=== PATIENT | female | born 1985 | race Caucasian/White ===

== ENCOUNTER → 2019-02-08 09:52 | Outpatient (CLI) | payer OTHER, SELFPAY ==
--- NOTE | 2019-02-08 | DI.US.S_ITS ---
PROCEDURE: US OB >= 14 WEEKS FETUS INDICATIONS: ANATOMY SCAN OUTSIDE/PRIOR DATING DATA: Last menstrual period (LMP): 09/16/2018. LMP-based estimated date of delivery (ZAY): 06/23/2019. First dating scan (date and location): 11/18/2018. [facility]. Estimated date of delivery (ZAY) from first dating scan: 06/24/2019. TECHNIQUE: Real-time scanning was performed of the fetus, with image documentation and biometric measurements. COMPARISON: None. FINDINGS: General: A single living intrauterine gestation is present. Presentation: Vertex. Placenta: Placental position is anterior, without previa. Amniotic fluid index: 16.8 cm, normal range is 5-24 cm. heart rate: 144 beats per minute. Maternal cervical canal: 4.5 cm long. Normal lower limit is 2.5 cm. biometrics: Biparietal diameter: 4.8 cm. 20 weeks 4 days. Head circumference: 18.3 cm. 20 weeks 5 days. Abdominal circumference: 15.9 cm. 21 weeks 0 days. Femur length: 3.3 cm. 20 weeks 1 day. Estimated gestational age from initial scan: 20 weeks 4 days. Composite gestational age from present scan: 20 weeks 4 days Estimated weight and percentile: 367 g. 49 percentile. Measurement variability for biometric dating: +/- 7 days from 14 weeks to 15 weeks 6 days gestation, +/- 10 days from 16 weeks to 21 weeks 6 days gestation, +/- 2 weeks from 22 weeks to 27 weeks 6 days gestation, +/- 3 weeks for 28 weeks gestation or later. weight reference: 4500 g or EFW >90/95% is considered macrosomia or large for gestational age. EFW <10% is small for gestational age. EFW 5% or less is considered intra-uterine growth restriction. Anatomic survey: Neuro: Ventricles are non-dilated at less than 10 mm. Cisterna magna is normal at 3-11 mm. Cerebellum is normal in size and morphology. Nuchal skin fold: Normal at less than 6 mm between 14-21 weeks gestational age. Face: Nose and lips, facial profile are normal. Spine: No evidence for spina bifida. Heart: 4-chambered heart is present, with normal ventricular outflow tracts. Diaphragm: Diaphragm is intact. Stomach: Left-sided stomach is present. Kidneys: No hydronephrosis. Normal is less than 5 mm in 2nd trimester, less than 7 mm in 3rd trimester. Cord: 3-vessel cord has orthotopic insertion. Bladder: Normal in size. Extremities: All 4 extremities identified. Maternal ovaries are not seen. IMPRESSION: 1. Rausch living intrauterine at 20 weeks 4/7 days based on today's ultrasound. This is concordant with the external assessment. There is expected interval growth. 2. Normal placenta and amniotic fluid. 3. Normal and complete anatomic survey. Dictated by: Josue Olson M.D. on 02/08/2019 at 16:53 Approved by: Josue Olson M.D. on 02/08/2019 at 16:58
== END ==
PROVIDERS: Visit Provider Nurse Practitioner Obstetrics & Gynecology
DX: Z36.89 Encounter for other specified antenatal screening (principal); Z3A.20 20 weeks gestation of pregnancy
CPT/HCPCS: 76811

== ENCOUNTER → 2019-03-16 09:39 | Outpatient (CLI) | payer OTHER, SELFPAY ==
[2019-03-16 11:48] LABS: Hematocrit 37.2 % (36-46); Hemoglobin 12.7 g/dL (12.0-16.0); Mean Corpuscular HGB Conc 34.2 % (30-36); Mean Corpuscular Hemoglobin 29.8 PG (26-34); Mean Corpuscular Volume 87.1 fL (80-100); Platelet Count 252 X10^3/uL (150-400); Red Blood Cell Count 4.27 X10^6/uL (4.0-5.2); Red Cell Distribution Width 13.7 % (11.6-14.8); White Blood Cell Count 10.4 X10^3/uL (4.5-11.0)
[2019-03-16 12:14] LABS: Glucose Tol Interpretation INTERPRETATION
[2019-03-16 12:29] LABS: Glucose 1 Hour 191 mg/dL (70-170)
[2019-03-16 12:30] LABS: Glucose Fasting 97 mg/dL (70-100)
[2019-03-16 13:13] LABS: Glucose 2 Hour 119 mg/dL (70-140)
== END ==
PROVIDERS: Visit Provider Nurse Practitioner Obstetrics & Gynecology
DX: Z34.82 Encounter for supervision of other normal pregnancy, second trimester (principal); Z13.1 Encounter for screening for diabetes mellitus
CPT/HCPCS: 36415; 82951; 82952; 85027

== ENCOUNTER → 2019-05-26 11:33 | Outpatient (CLI) | payer OTHER, SELFPAY ==
--- NOTE | 2019-05-26 | DI.US.S_ITS ---
PROCEDURE: US OB LIMITED INDICATIONS: EFW; BPP; GESTATIONAL DIABETES OUTSIDE/PRIOR DATING DATA: Last menstrual period (LMP): 09/16/2018. LMP-based estimated date of delivery (ZAY): 06/23/2019. First dating scan (date and location): 11/18/2018. [facility]. Estimated date of delivery (ZAY) from first dating scan: 06/24/2019. TECHNIQUE: Real-time scanning was performed of the fetus, with image documentation and biometric measurements. Biophysical profile was also performed. Endovaginal scanning: Not done COMPARISON: [facility], OB >= 14 WEEKS FETUS, 02/08/2019, 10:04. FINDINGS: General: A single live intrauterine gestation is present. Presentation: Vertex. Placenta: Placental position is right fundal, without previa. Amniotic fluid index: 10.1 cm, normal range is 5-24 cm. heart rate: 152 beats per minute. Maternal cervical canal: Not seen biometrics: Biparietal diameter: 8.9 cm equals 35 weeks 6 days Head circumference: 33.8 cm equals 38 weeks 6 days Abdominal circumference: 33.6 cm equals 37 weeks 4 days Femur length: 7.3 cm equals 37 weeks 1 day Estimated gestational age from initial scan: 35 weeks 6 days Composite gestational age from present scan: 37 weeks 3 days Estimated weight and percentile: 3195 g, 88% Measurement variability for biometric dating: +/- 7 days from 14 weeks to 15 weeks 6 days gestation, +/- 10 days from 16 weeks to 21 weeks 6 days gestation, +/- 2 weeks from 22 weeks to 27 weeks 6 days gestation, +/- 3 weeks for 28 weeks gestation or later. weight reference: 4500 g or EFW >90/95% is considered macrosomia or large for gestational age. EFW <10% is small for gestational age. EFW 5% or less is considered intra-uterine growth restriction. Biophysical profile: Tone: 2 points Movement: 2 points Respiration: 2 points Largest pocket: 2 points Other: Not applicable. IMPRESSION: Normal biophysical profile, 8/8 points. Normal interval growth when compared to the prior ultrasound examination. The estimated weight is 3185 g, 88th percentile. Dictated by: Hussein Blanchard M.D. on 05/26/2019 at 11:30 Approved by: Hussein Blanchard M.D. on 05/26/2019 at 11:33
== END ==
PROVIDERS: Referring Provider Nurse Practitioner Obstetrics & Gynecology; Visit Provider Nurse Practitioner Obstetrics & Gynecology
DX: Z36.89 Encounter for other specified antenatal screening (principal); Z36.85 Encounter for antenatal screening for Streptococcus B; O24.419 Gestational diabetes mellitus in pregnancy, unspecified control; Z3A.37 37 weeks gestation of pregnancy
CPT/HCPCS: 76815; 76819; 87081

== ENCOUNTER → 2019-06-09 12:14 | Outpatient (CLI) | payer OTHER, SELFPAY ==
--- NOTE | 2019-06-09 | DI.US.S_ITS ---
PROCEDURE: US OB FOLLOW UP INDICATIONS: GROWTH AND BPP OUTSIDE/PRIOR DATING DATA: Last menstrual period (LMP): 09/16/18. LMP-based estimated date of delivery (ZAY): 06/23/19. First dating scan (date and location): 11/18/18. Estimated date of delivery (ZAY) from first dating scan: 06/24/19. TECHNIQUE: Real-time scanning was performed of the fetus, with image documentation and biometric measurements. Endovaginal scanning: Not performed COMPARISON: None. FINDINGS: General: A single living intrauterine gestation is present. Presentation: Cephalic. Placenta: Placental position is anterior, without previa. Amniotic fluid index: 7.9 cm, normal range is 5-24 cm. heart rate: 171 beats per minute. Maternal cervical canal: Maternal cervical length not measured secondary to limited visualization given cephalic presentation and advanced gestational age. biometrics: Biparietal diameter: 9.3 cm, correlating with 37 weeks and 4 days (67th percentile) Head circumference: 32.7 cm, correlating with 36 weeks and 6 days (10th percentile) Abdominal circumference: 32.9 cm, correlating with 37 weeks and 6 days (66 percentile) Femur length: 7.32 cm, correlating with 38 weeks and 0 days (56 percentile) Estimated gestational age from initial scan: not applicable. Composite gestational age from present scan: 37 weeks and 4 days Estimated weight and percentile: 3290 g which correlates with the 58th percentile based off gestational age. Measurement variability for biometric dating: +/- 7 days from 14 weeks to 15 weeks 6 days gestation, +/- 10 days from 16 weeks to 21 weeks 6 days gestation, +/- 2 weeks from 22 weeks to 27 weeks 6 days gestation, +/- 3 weeks for 28 weeks gestation or later. weight reference: 4500 g or EFW >90/95% is considered macrosomia or large for gestational age. EFW <10% is small for gestational age. EFW 5% or less is considered intra-uterine growth restriction. Other: Biophysical profile score measured 8 out of 8. IMPRESSION: 1. Single living intrauterine gestation with an estimated sonographic gestational age of approximately 37 weeks and 4 days. Expected interval growth has occurred. 2. Estimated weight measuring approximately 3290 g which correlates with the 58th percentile based off gestational age. 3. Four-quadrant KRISTIE measured 7.9 cm with the largest vertical fluid pocket measuring approximately 4.9 cm. 4. Biophysical profile score of 8 out of 8. Dictated by: Marquise Kern M.D. on 06/09/2019 at 16:07 Approved by: Marquise Kern M.D. on 06/09/2019 at 16:18
== END ==
PROVIDERS: Referring Provider Nurse Practitioner Obstetrics & Gynecology; Visit Provider Nurse Practitioner Obstetrics & Gynecology
DX: Z36.2 Encounter for other antenatal screening follow-up (principal); Z3A.37 37 weeks gestation of pregnancy
CPT/HCPCS: 76816

== ENCOUNTER → 2019-06-13 10:48 | Outpatient (CLI) | payer OTHER, SELFPAY ==
[2019-06-14 03:22] LABS: COVID19 Sendout Not Detected (Not Detect)
== END ==
PROVIDERS: Visit Provider Registered Nurse
DX: Z01.812 Encounter for preprocedural laboratory examination (principal)
CPT/HCPCS: 87635

== ENCOUNTER 2019-06-16 07:26 | Inpatient (IN) | payer OTHER, SELFPAY ==
--- NOTE | 2019-06-16 07:48 | P.HPOB_ITS ---
OB HPI Date/Time Date of admission: 06/16/19 Date Patient Seen: 06/16/19 Time Patient Seen: 07:30 History of Present Condition Chief complaint: Observation of Labor : 3 Para: 1 Estimated Date of Delivery: 06/23/19 Estimated Gestational Age (weeks): 39 Narrative: Amina Serna is a 34 year old female here for 39 wk IOL for GDMA2. [place]-9. Was able to sleep well. IOL consent signed 06/15/19. Planning epidural. complicated by obesity and GDMA2 (Metformin). 38wk growth US EFW 3290grams/58%. 38wk BPP-8/8, KRISTIE-7.9cm. Indications Indication for induction OB: medical complication History of Present care: good care, initiated at week # (9), number of visits (12) and pounds weight gain (0) Dating criteria: LMP confirmed by 1st trimester US Ultrasounds: normal mid trimester US Obstetrical complications: gestational diabetes Medical complications: none Preadmission Labs Blood type: O (+) positive -: Antibody screen: negative, GBS status: negative, HBsAG: negative, HIV: negative and RPR/VDLR: negative -: Chlamydia screen: not detected and Gonorrhea screen: not detected -: Rubella: immune HCT: 37.2 HCAB: negative Cell-free DNA: Negative/male 3 hr GTT: 2 hr (97/191/119) Prior (ies) History: 11/21/16@ NSVB @ 40wks, 7#11oz, IOL for GDMA2, 1st degree, epidural Evaluation Evaluation Baseline heart rate: 155 Variability: Moderate (11-25) monitor accelerations: Present monitor decelerations: Absent Contraction Frequency (minutes): 0 Uterine Contraction Intensity: Mild Category of Tracing: I Cervical dilation (cm): 4 Cervical effacement (%): 80 station: -2 [facility] Social History (Updated 06/16/19 @ 08:07 by Geeta Kruse CNM) marital status: number of children: 1 household members: spouse and children lives independently: Yes caregiver/support person: No housing: house education level: college Smoking Status: Never smoker Meds Home Medications and Allergies Home Medications Medication Instructions Recorded Confirmed Type metformin 2,000 mg PO 06/16/19 History Allergies Allergy/AdvReac Type Severity Reaction Status Date / Time No Known Drug Allergies Allergy Verified 06/13/19 11:11 Review of Systems Review of Systems ROS: Yes All systems reviewed with the patient and are negative except as otherwise documented Exam Vital Signs (past 8 hours): BP 135/79, HR106, T36.6C Temporal Uterus Location (Fundal Height): 40 Presentation: vertex Estimated Weight (lbs): 8 Objective Labs Result Diagrams: 06/16/19 08:50 06/16/19 08:50 Assessment and Plan Assessment and Plan Assessment and Plan narrative: Admit: Routine orders w/ CBC, T&S, random glucose and HgbA1c. Pitocin, per protocol. /OB Back-up notified of patient status and plan of care. Once regular ctx established, epidural, then AROM. Reassess Q4hr or sooner, PRN.
[2019-06-16] MEDS: LACTATED RINGERS 1,000 ML 100 ML IV ×3 (08:50→17:59)
[2019-06-16] MEDS: METFORMIN HCL 500 MG TABLET PO (09:08)
[2019-06-16] MEDS: OXYTOCIN PREMIX 30 UNIT/500 ML PLAST..BAG IV (09:09)
[2019-06-16 09:17] LABS: Add Manual Diff / Slide Review NO; Basophils Absolute Auto 0 /uL (0-100); Basophils Percent Auto 0.2 % (0-2); Eosinophils Absolute Auto 0 /uL (0-450); Eosinophils Percent Auto 0.2 % (2-4); Hematocrit 37.1 % (36-46); Hemoglobin 12.8 g/dL (12.0-16.0); Lymphocytes Absolute Auto 1500 /uL (1100-4500); Lymphocytes Percent Auto 15.1 % (25-40); Mean Corpuscular HGB Conc 34.4 % (30-36); Mean Corpuscular Hemoglobin 29.7 PG (26-34); Mean Corpuscular Volume 86.5 fL (80-100); Monocytes Absolute Auto 900 /uL (0-900); Monocytes Percent Auto 8.8 % (3-14); Neutrophils Absolute Auto 7400 /uL (1500-7000); Neutrophils Percent Auto 75.7 % (50-75); Platelet Count 170 X10^3/uL (150-400); Red Blood Cell Count 4.29 X10^6/uL (4.0-5.2); Red Cell Distribution Width 13.7 % (11.6-14.8); White Blood Cell Count 9.7 X10^3/uL (4.5-11.0)
[2019-06-16 09:29] LABS: Hemoglobin A1C% w Est Avg Glu 5.2 % (4.0-6.0)
[2019-06-16 09:31] LABS: Glucose 126 mg/dL (70-100)
[2019-06-16 10:12] VITALS: BP 135/79
[2019-06-16] MEDS: fentaNYL 100 MCG/2 ML INJ IV (13:00)
--- NOTE | 2019-06-16 14:06 | PM.OBPNLAB ---
Date/Time Date Patient Seen: 06/16/19 Time Patient Seen: 14:00 Pain Control Pain control: epidural Comments: Patient remained comfortable w/ pitocin augmentation and elected epidural prior to AROM. VS: BP 129/75, HR89, T36.8C Temporal, SpO2 99% Pelvic Exam Dilation (cm): 4 Effacement (%): 80 station: -2 Amniotic membrane status: Ruptured (AROM) Comments: AROM, clear fluid Contractions Date/Time contractions began: 1000 Contractions on admission: none Monitor mode: External Pitocin rate (mU/min): 12 Contraction frequency (min): 2 Contraction duration (min): 1 Contraction pattern: Regular Contraction phase: Resting Contraction intensity: Mild Status status: Category l Heart Rate Baseline: 160 Monitor Accelerations: Present Monitor Decelerations: Absent Monitor Variability: Moderate Assessment and Plan Assessment: induction ongoing Plan: continuous present management Comments: Continue to titrate pitocin to adequate ctx pattern. Reassess in 4 hours or sooner, PRN.
[2019-06-16] MEDS: ONDANSETRON 4 MG/2 ML INJ IV (17:15)
--- NOTE | 2019-06-16 19:19 | PM.OBPRVD ---
 Events: Gestational Diabetes (GDMA2) and Labor Induction Labor & Delivery Delivery date: 06/16/19 Intrapartal events: None Cervical ripening method: none Induction method: per pitocin protocol Delivery augmentation: rupture of membranes Delivery monitor: external FHT and external uterine Route of delivery: L&D Laceration Description: None Estimated blood loss (mL): 200 Anesthesia type: Epidural Narrative: After CE of C/C/+1, patient was coached on pushing. Strong maternal effort led to steady descent of vertex and NSVB of a viable baby boy in INEZ position over an intact perineum. was sommersaulted through a single, tight nuchal cord with easy delivery of the shoulders. [place] was placed on maternal abdomen for drying and stimulation. Remaining 30 units of pitocin in 500mL LR was restarted at 350mL/hr for AMTSL. After cessation of pulsation, the cord was double clamped by CNM and cut by FOB. Gentle cord traction and single maternal push led to spontaneous, Mohamud delivery of an apparently intact placenta, membranes and 3VC. Fundus immediately firm and bleeding minimal. QBL 200mL. Both mother and baby stable and skin to skin as I left the room. Baby 1: gender: Male Presentation: vertex Placenta delivery description: Spontaneous cord vessel description: Nuchal Cord score (1 min): 8 score (5 min): 9 Plan for aftercare: Routine PP orders. Anticipate discharge to home in 18-24 hours.
[2019-06-16 20:29] VITALS: TEMP 36.9
[2019-06-16] MEDS: KETOROLAC 30 MG/ML VIAL IV (20:29)
[2019-06-16] MEDS: DOCUSATE 100 MG CAPSULE PO (20:30)
[2019-06-17] MEDS: IBUPROFEN 600 MG TABLET PO ×2 (03:04→10:25)
[2019-06-17] MEDS: PRENATAL VIT,CALC/IRON/FOLIC 1 TABLET 1 TAB PO (10:23)
[2019-06-17] MEDS: DOCUSATE 100 MG CAPSULE PO (10:24)
--- NOTE | 2019-06-17 15:24 | PM.OBDS.1 ---
Discharge Providers Provider Date of admission: 06/16/19 07:26 Discharge Date: 06/17/19 Consults: 06/16/19 07:46 Consult to Anesthesiology Urgent Comment: Consulting Provider: Anesthesiologist Reason for consultation: when requested for labor Has provider been notified: Yes 06/17/19 19:17 Consult to [employer] Routine Comment: Discharge provider: Geeta Kruse CNM Summary Discharge Diagnosis (1) Encounter for full-term uncomplicated delivery: Status: Acute Problem Details: Routine PP course, orders and follow-up Time Spent with Patient Time attestation: Total time spent providing and/or coordinating discharge services: Objective Labs Result Diagrams: 06/16/19 08:50 06/16/19 08:50 Exam Vital Signs (past 8 hours): BP 126/66, HR 84, T98.6F Temporal Other: Fundus firm @ U-1, lochia light, no clots. Perineum intact. Psych Appearance: well kempt Mood: congruent mood Affect: normal affect Discharge Plan Discharge Plan Patient Disposition: Home Discharge orders & Medications Prescriptions: New acetaminophen 325 mg Tablet 650 mg PO Q6HR PRN (Reason: Pain, Mild (1-3)) 14 Days Qty: 60 RF: 2 docusate sodium [DOK] 100 mg Capsule 100 mg PO BID 14 Days Qty: 28 RF: 0 ibuprofen 600 mg Tablet 600 mg PO Q6HR PRN (Reason: Pain, Mild (1-3)) 14 Days Qty: 60 RF: 2 Discontinued metformin 1,000 mg tablet 2,000 mg PO RF: 0 Follow up/Referrals: Geeta Kruse CNM [[facility]] - (Follow-up in 2 weeks and 6 weeks as scheduled) Diet/Activity/Treatments Diet: Regular Activity: Pelvic rest x 6 weeks Skin/Wound/Dressing Care Report to your healthcare provider any signs of infection, such as:: chills, fever, increased pain, unusual drainage and unusual redness Visit Report/Discharge Packet Instructions: DI for Depression
[2019-06-17 16:57] VITALS: BP 126/66; PULSE 84; RESP 16; TEMP 37
== END 2019-06-17 17:40 | disposition home or self-care (01) | DRG 807 ==
PROVIDERS: Admitting Provider Nurse Practitioner Obstetrics & Gynecology; Referring Provider Nurse Practitioner Obstetrics & Gynecology; Visit Provider Nurse Practitioner Obstetrics & Gynecology
DX: O24.425 Gestational diabetes mellitus in childbirth, controlled by oral hypoglycemic drugs (principal); Z37.0 Single live birth; E66.9 Obesity, unspecified; Z3A.39 39 weeks gestation of pregnancy; O69.81X0 Labor and delivery complicated by cord around neck, without compression, not applicable or unspecified
CPT/HCPCS: 01967; 59050; 82947; 83036; 85025; 86850; 86900; 86901; G0379; J1885; J2405; J2590; J3010

== ENCOUNTER → 2022-04-15 09:25 | Outpatient (CLI) | payer BC, SELFPAY ==
[2022-04-15 11:07] LABS: Add Manual Diff / Slide Review NO; Basophils Absolute Auto 0 /uL (0-100); Basophils Percent Auto 0.4 % (0-2); Eosinophils Absolute Auto 100 /uL (0-450); Eosinophils Percent Auto 1.5 % (2-4); Hematocrit 42.5 % (36-46); Hemoglobin 14.4 g/dL (12.0-16.0); Lymphocytes Absolute Auto 1500 /uL (1100-4500); Lymphocytes Percent Auto 28.9 % (25-40); Mean Corpuscular Hemoglobin 28.8 PG (26-34); Mean Corpuscular Volume 84.9 fL (80-100); Monocytes Absolute Auto 400 /uL (0-900); Neutrophils Absolute Auto 3300 /uL (1500-7000); Neutrophils Percent Auto 61.2 % (50-75); Platelet Count 309 X10^3/uL (150-400); Red Cell Distribution Width 13.4 % (11.6-14.8); White Blood Cell Count 5.3 X10^3/uL (4.5-11.0)
[2022-04-15 11:36] LABS: Alanine Aminotransferase 52 IU/L (<35); Albumin 4.4 g/dL (3.5-5.0); Albumin Globulin Ratio 1.3 (1.0-2.8); Alkaline Phosphatase 78 U/L (38-126); Aspartate Aminotransferase 33 IU/L (14-36); BUN Creatinine Ratio 19.7 (6-22); Bilirubin Total 0.5 mg/dL (0.2-1.3); Blood Urea Nitrogen 14 mg/dL (7-17); Calcium 8.8 mg/dL (8.4-10.2); Carbon Dioxide 25 mmol/L (22-32); Chloride 105 mmol/L (98-107); Cholesterol 174 mg/dL (140-199); Estimated Glomerular Filt Rate > 60 mL/min (>60); Globulin 3.3 g/dL (1.7-4.1); Glucose 107 mg/dL (70-100); HDL Cholesterol 39 mg/dL (40-60); HEMOLYSIS < 15 (0-50); LDL Cholesterol Calculated 113 mg/dL (<100); Sodium 141 mmol/L (137-145); Total Protein 7.7 g/dL (6.3-8.2); Triglycerides 109 mg/dL (35-150)
[2022-04-15 11:44] LABS: Free T3, Triiodothyronine Free 3.82 pg/mL (2.77-5.27)
[2022-04-15 11:56] LABS: Hemoglobin A1C% w Est Avg Glu 5.6 % (4.0-6.0)
[2022-04-15 11:58] LABS: Thyroid Stimulating Hormone 2.29 uIU/mL (0.47-4.68)
== END ==
PROVIDERS: Referring Provider Advanced Practice Midwife; Visit Provider Advanced Practice Midwife
DX: Z00.00 Encounter for general adult medical examination without abnormal findings (principal); Z86.32 Personal history of gestational diabetes; E34.9 Endocrine disorder, unspecified; Z68.36 Body mass index [BMI] 36.0-36.9, adult
CPT/HCPCS: 36415; 80053; 80061; 83036; 84443; 84481; 85025